=== PATIENT | male | born 1965 | race Caucasian/White ===

== ENCOUNTER 2019-07-02 05:45 | Inpatient (IN) ==
[2019-06-19 10:17] LABS: Basophils % 0.7 % (0.0-0.8); Eosinophils # 0.1 10*3/uL (0.0-0.87); Eosinophils % 2.5 % (0.00-10.9); Hematocrit 45.8 VOL% (42.0-52.0); Hemoglobin 15.9 GM/DL (14.0-18.0); Immature Granulocytes % 0.2 %; Immature Granulocytes Absolute 0.01 #; Lymphocytes # 2.2 10*3/uL (1.4-4.0); Mean Corpuscular HGB Conc 34.7 GM/DL (32-36); Mean Corpuscular Volume 89.1 FL (87-102); Mean Platelet Volume 10.5 FL (9.6-12.0); Monocytes % 7.1 % (1.7-12.7); Neutrophils % 51.5 % (38.7-73.9); Platelet Count 220 T/CUMM (130-400); Red Blood Count 5.14 MC/CUMM (3.8-5.5); Red Cell Distribution Width 12.9 % (9.3-17.3); White Blood Count 5.7 T/CUMM (4-12)
[2019-06-19 10:19] LABS: Apearance,Urine CLEAR (Clear); Bacteria,Urine Occasional /HPF (Few); Bilirubin,Urine Negative (Negative); Blood, Urine Negative (Negative); Glucose,Urine (UA) Negative (Negative); Ketones,Urine Negative (Negative); Mucus,Urine Occasional /LPF (Occasional); Nitrite,Urine Positive (Negative); Protein,Urine Negative; RBC,Urine <1 /HPF (0-4); Urine Color Yellow (Yellow); Urine Specific Gravity 1.008 (1.001-1.035); Urine Urobilinogen < 2.0 EU/DL (0.2-1.0); WBC,Urine 5 /HPF (0-6)
[2019-06-19 10:35] LABS: Calcium 9.3 MG/DL (8.5-10.1); Osmolality,Calculated 278.4 MOS/KG (273-304)
[2019-07-02] MEDS ORDERED: GABAPENTIN 400 MG CAPSULE PO ONE (06:00)
[2019-07-02] MEDS ORDERED: DIAZEPAM 5 MG TABLET PO ONE (06:00)
[2019-07-02] MEDS ORDERED: FAMOTIDINE 20 MG TABLET PO ONE (06:00)
[2019-07-02] MEDS ORDERED: GABAPENTIN 400 MG CAPSULE ONE (06:23)
[2019-07-02] MEDS ORDERED: DIAZEPAM 5 MG TABLET ONE (06:23)
[2019-07-02] MEDS ORDERED: ALVIMOPAN 12 MG CAPSULE ONE (06:24)
[2019-07-02] MEDS ORDERED: cefTRIAXone 1,000 MG VIAL ONE (06:24)
[2019-07-02] MEDS ORDERED: FAMOTIDINE 20 MG TABLET ONE (06:24)
[2019-07-02] MEDS ORDERED: cefTRIAXone 1,000 MG in SYRINGE 1 EACH IV ONE (06:30)
[2019-07-02] MEDS ORDERED: ALVIMOPAN 12 MG CAPSULE PO ONE (06:30)
[2019-07-02] MEDS ORDERED: LACTATED RINGERS 1,000 ML IV SCH (07:00)
[2019-07-02] MEDS ORDERED: SUGAMMADEX 200 MG/2 ML VIAL IV ONE (09:01)
[2019-07-02] MEDS ORDERED: diphenhydrAMINE 50 MG/1 ML VIAL IV PRN (09:24)
[2019-07-02] MEDS ORDERED: ONDANSETRON 4 MG/2 ML VIAL IV PRN ×2 (09:24→10:16)
[2019-07-02] MEDS ORDERED: HYDROmorphone PCA 30 MG/30 ML SYRINGE IV SCH (09:30)
[2019-07-02 09:47] LABS: Apearance,Urine CLEAR (Clear); Bilirubin,Urine Negative (Negative); Blood, Urine Negative (Negative); Glucose,Urine (UA) Negative (Negative); Ketones,Urine Negative (Negative); Nitrite,Urine Negative (Negative); Protein,Urine Negative; Urine Color Yellow (Yellow); Urine Specific Gravity 1.018 (1.001-1.035); Urine Urobilinogen < 2.0 EU/DL (0.2-1.0)
[2019-07-02] MEDS ORDERED: PROPOFOL 200 MG/20 ML VIAL IV ONE (09:48)
[2019-07-02] MEDS ORDERED: SEVOFLURANE 1 UNIT/15 MINUTE INH ONE (09:48)
[2019-07-02] MEDS ORDERED: LIDOCAINE 2% 5 ML VIAL ONE (09:48)
[2019-07-02] MEDS ORDERED: fentaNYL 100 MCG/2 ML VIAL ONE ×2 (09:49)
[2019-07-02] MEDS ORDERED: HYDROmorphone 2 MG/1 ML VIAL ONE ×2 (09:49→10:14)
[2019-07-02] MEDS ORDERED: KETAMINE 500 MG/10 ML VIAL ONE (09:49)
[2019-07-02] MEDS ORDERED: PHENYLEPHRINE 1 MG/10 ML SYRINGE IV ONE (09:50)
[2019-07-02] MEDS ORDERED: DEXAMETHASONE 4 MG/1 ML VIAL ONE (09:50)
[2019-07-02] MEDS ORDERED: ROCURONIUM 100 MG/10 ML VIAL IV ONE (09:50)
[2019-07-02] MEDS ORDERED: METOPROLOL TARTRATE 5 MG/5 ML VIAL IV ONE (09:50)
[2019-07-02] MEDS ORDERED: LACTATED RINGERS 1,000 ML IV ONE (09:50)
[2019-07-02] MEDS ORDERED: HYDROmorphone PCA 30 MG/30 ML SYRINGE IV ONE ×2 (09:51→10:14)
[2019-07-02] MEDS ORDERED: MIDAZOLAM 2 MG/2 ML VIAL ONE (09:53)
[2019-07-02] MEDS ORDERED: ONDANSETRON 4 MG/2 ML VIAL ONE (10:14)
[2019-07-02] MEDS: HYDROmorphone 2 MG/1 ML VIAL IV PRN ×4 (10:17→10:37)
[2019-07-02] MEDS ORDERED: ALBUTEROL 2.5 MG/3 ML NEB RESP TX PRN (11:00)
[2019-07-02] MEDS ORDERED: NALOXONE 0.4 MG/ML VIAL ONE ×2 (11:19→11:21)
[2019-07-02 11:50] LABS: Basophils # 0.1 10*3/uL (0.0-0.2); Basophils % 0.3 % (0.0-0.8); Eosinophils % 0.2 % (0.00-10.9); Hematocrit 43.2 VOL% (42.0-52.0); Hemoglobin 15.1 GM/DL (14.0-18.0); Immature Granulocytes % 0.5 %; Immature Granulocytes Absolute 0.08 #; Lymphocytes # 2.3 10*3/uL (1.4-4.0); Lymphocytes % 13.2 % (21.2-54.2); Mean Corpuscular Volume 90.8 FL (87-102); Mean Platelet Volume 10.2 FL (9.6-12.0); Monocytes % 2.3 % (1.7-12.7); Neutrophils % 83.5 % (38.7-73.9); Platelet Count 199 T/CUMM (130-400); Red Blood Count 4.76 MC/CUMM (3.8-5.5); Red Cell Distribution Width 13.1 % (9.3-17.3); White Blood Count 17.2 T/CUMM (4-12)
[2019-07-02 11:57] LABS: INR 0.9; PT Patient Result 10.2 SECS (9.6-12.2); Partial Thromboplastin Time 22.3 SECS (20.8-36.0)
[2019-07-02 12:00] LABS: ABG Base Excess -3.9 MMOL/L (-2.5-2.5); ABG HCO3 22.6 MMOL/L (20-26); ABG Oxygen Saturation 99.2 % (95-100); ABG PCO2 46.6 MM HG (35-48); ABG PH 7.304 (7.35-7.45); ABG PO2 221.7 MM HG (80-95); ABG TCO2 24.1 MMOL/L (23-27)
[2019-07-02 12:07] LABS: Blood Urea Nitrogen 17 MG/DL (7-18); Estimated Glom Filtration Rate 63 ML/MIN; Glucose 216 MG/DL (74-106); Osmolality,Calculated 289.3 MOS/KG (273-304)
[2019-07-02] MEDS ORDERED: methylPREDNISolone SOD SUC 125 MG/2 ML VIAL IV ONE (13:57)
[2019-07-02] MEDS: ACETAMINOPHEN 500 MG TABLET PO PRN ×2 (14:22→18:06)
[2019-07-02] MEDS: MORPHINE 4 MG/1 ML VIAL IV PRN ×3 (14:23→20:12)
[2019-07-02] MEDS: SODIUM CHLORIDE 0.9% 1,000 ML IV SCH ×2 (14:30→19:30)
[2019-07-02 14:34] LABS: Troponin I 0.017 NG/ML (0.00-0.045)
[2019-07-02 14:53] LABS: Bilirubin,Direct 0.11 MG/DL (0.0-0.20); Bilirubin,Indirect 0.3 MG/DL (0.0-1.0); Bilirubin,Total 0.4 MG/DL (0.2-1.0); Total Protein 6.8 G/DL (6.4-8.3)
[2019-07-02] MEDS: ALBUTEROL/IPRATROPIUM 3 ML NEB RESP TX SCH (19:23)
[2019-07-02] MEDS: ALVIMOPAN 12 MG CAPSULE PO SCH (20:11)
[2019-07-02 20:30] LABS: Troponin I 0.029 NG/ML (0.00-0.045)
[2019-07-03] MEDS: SODIUM CHLORIDE 0.9% 1,000 ML IV SCH ×3 (00:30→10:08)
[2019-07-03] MEDS: ALBUTEROL/IPRATROPIUM 3 ML NEB RESP TX SCH ×5 (00:33→19:28)
[2019-07-03] MEDS: MORPHINE 4 MG/1 ML VIAL IV PRN ×5 (01:44→19:02)
[2019-07-03 03:01] LABS: Basophils % 0.2 % (0.0-0.8); Hematocrit 40.8 VOL% (42.0-52.0); Hemoglobin 14.2 GM/DL (14.0-18.0); Immature Granulocytes % 0.3 %; Immature Granulocytes Absolute 0.04 #; Lymphocytes # 1.2 10*3/uL (1.4-4.0); Lymphocytes % 9.8 % (21.2-54.2); Mean Corpuscular HGB Conc 34.8 GM/DL (32-36); Mean Corpuscular Volume 90.3 FL (87-102); Mean Platelet Volume 10.5 FL (9.6-12.0); Monocytes % 9.6 % (1.7-12.7); Neutrophils % 80.1 % (38.7-73.9); Platelet Count 173 T/CUMM (130-400); Red Blood Count 4.52 MC/CUMM (3.8-5.5); White Blood Count 11.9 T/CUMM (4-12)
[2019-07-03 03:26] LABS: Calcium 8.3 MG/DL (8.5-10.1); Osmolality,Calculated 284.3 MOS/KG (273-304)
[2019-07-03 03:30] LABS: Troponin I 0.026 NG/ML (0.00-0.045)
[2019-07-03 08:27] LABS: Troponin I 0.026 NG/ML (0.00-0.045)
[2019-07-03] MEDS: ALVIMOPAN 12 MG CAPSULE PO SCH ×2 (10:08→22:31)
[2019-07-03] MEDS: POLYETHYLENE GLYCOL POWDER 17 GM PACK PO SCH (10:08)
[2019-07-03 15:53] LABS: Troponin I 0.028 NG/ML (0.00-0.045)
[2019-07-03] MEDS ORDERED: BISACODYL 10 MG SUPP RECTAL PRN (21:19)
[2019-07-03] MEDS: SIMETHICONE CHEW 125 MG TABLET PO SCH (22:31)
[2019-07-03] MEDS: oxyCODONE/ACETAMINOPHEN 5-325 MG TABLET PO PRN (22:32)
[2019-07-03] MEDS: NICOTINE 21 MG/24 HR PATCH TRANSDERM SCH (22:33)
[2019-07-04] MEDS: ALBUTEROL/IPRATROPIUM 3 ML NEB RESP TX SCH ×2 (00:10→07:51)
[2019-07-04] MEDS: oxyCODONE/ACETAMINOPHEN 5-325 MG TABLET PO PRN ×2 (04:43→09:56)
[2019-07-04] MEDS: ALVIMOPAN 12 MG CAPSULE PO SCH (08:27)
[2019-07-04] MEDS: SIMETHICONE CHEW 125 MG TABLET PO SCH (08:27)
[2019-07-04] MEDS: NICOTINE 21 MG/24 HR PATCH TRANSDERM SCH (08:27)
[2019-07-04] MEDS: POLYETHYLENE GLYCOL POWDER 17 GM PACK PO SCH (08:27)
[2019-07-04] MEDS ORDERED: SIMETHICONE CHEW 125 MG TABLET PO SCH (09:00)
[2019-07-04 11:29] VITALS: BP 126/83
== END 2019-07-04 13:11 | disposition home or self-care (01) | DRG 656 ==
LOC: N.OR 05:45 → N.SDSINP 05:45 → N.5E 10:43 → N.ICU 11:33 → N.5E 07-03 14:21
PROVIDERS: ADMIT Urology; ATTEND Urology

== ENCOUNTER 2020-05-12 09:38 | Inpatient (IN) ==
[2020-05-12 10:17] LABS: Basophils % 0.7 % (0.0-0.8); Eosinophils # 0.1 10*3/uL (0.0-0.87); Eosinophils % 2.6 % (0.00-10.9); Hematocrit 45.2 VOL% (42.0-52.0); Hemoglobin 15.8 GM/DL (14.0-18.0); Immature Granulocytes % 0.2 %; Immature Granulocytes Absolute 0.01 #; Lymphocytes # 1.8 10*3/uL (1.4-4.0); Lymphocytes % 38.5 % (21.2-54.2); Mean Corpuscular Volume 88.3 FL (87-102); Mean Platelet Volume 10.3 FL (9.6-12.0); Monocytes % 8.6 % (1.7-12.7); Neutrophils % 49.4 % (38.7-73.9); Platelet Count 238 T/CUMM (130-400); Red Blood Count 5.12 MC/CUMM (3.8-5.5); Red Cell Distribution Width 13.7 % (9.3-17.3); White Blood Count 4.6 T/CUMM (4-12)
[2020-05-12 10:36] LABS: Albumin 4.3 G/DL (3.4-5.0); Bilirubin,Total 0.7 MG/DL (0.2-1.0); Calcium 9.5 MG/DL (8.5-10.1); Osmolality,Calculated 273.8 MOS/KG (273-304); Total Protein 8.3 G/DL (6.4-8.3)
[2020-05-12] MEDS ORDERED: cefTRIAXone 1,000 MG in SODIUM CHLORIDE 0.9% 100 ML IV STA (11:44)
[2020-05-12] MEDS ORDERED: AZITHROMYCIN INJ 500 MG in SODIUM CHLORIDE 0.9% 250 ML IV STA (11:44)
[2020-05-12] MEDS ORDERED: traZODone 50 MG TABLET PO PRN (12:13)
[2020-05-12] MEDS ORDERED: ZALEPLON 5 MG CAPSULE PO PRN (12:13)
[2020-05-12] MEDS ORDERED: guaiFENesin/DM ER 600-30 MG TABLET PO PRN (12:13)
[2020-05-12] MEDS ORDERED: hydrALAZINE 20 MG/1 ML VIAL IV PRN (12:13)
[2020-05-12] MEDS ORDERED: diphenhydrAMINE CAP 25 MG CAPSULE PO PRN (12:13)
[2020-05-12] MEDS ORDERED: ONDANSETRON 4 MG/2 ML VIAL IV PRN (12:13)
[2020-05-12] MEDS ORDERED: DEXTROSE 50% 25 GM/50 ML VIAL IV PRN (12:13)
[2020-05-12] MEDS ORDERED: POTASSIUM CHLORIDE RIDER 10 MEQ in PREMIX 1 EACH IV PRN (12:13)
[2020-05-12] MEDS ORDERED: MORPHINE 4 MG/1 ML VIAL IV PRN (12:13)
[2020-05-12] MEDS ORDERED: GLUCAGON 1 MG VIAL IM PRN (12:13)
[2020-05-12] MEDS ORDERED: ALBUTEROL/IPRATROPIUM 3 ML NEB RESP TX PRN (13:00)
[2020-05-12] MEDS ORDERED: TUBERCULIN SKIN TEST 0.1 ML SYRINGE INTRADERM ONE (16:00)
[2020-05-12 20:07] LABS: Apearance,Urine CLEAR (Clear); Bilirubin,Urine Negative (Negative); Blood, Urine Negative (Negative); Glucose,Urine (UA) Negative (Negative); Ketones,Urine 5 mg/dL (Negative); Nitrite,Urine Negative (Negative); Protein,Urine Negative; RBC,Urine 1 /HPF (0-4); Urine Color Yellow (Yellow); Urine Specific Gravity 1.033 (1.001-1.035); Urine Urobilinogen < 2.0 EU/DL (0.2-1.0); WBC,Urine <1 /HPF (0-6)
[2020-05-12] MEDS: busPIRone 5 MG TABLET PO SCH (20:15)
[2020-05-12] MEDS: NICOTINE 21 MG/24 HR PATCH TRANSDERM PRN (20:18)
[2020-05-12 21:17] LABS: Barbiturates Screen,Urine Negative (Negative); Benzodiazepines Screen,Urine Negative (Negative); Cannabinoid Screen,Urine Positive (Negative); Opiate Screen,Urine Positive (Negative); Phencyclidine Screen,Urine Negative (Negative)
[2020-05-13 06:19] LABS: Basophils % 0.8 % (0.0-0.8); Eosinophils # 0.2 10*3/uL (0.0-0.87); Eosinophils % 3.3 % (0.00-10.9); Hematocrit 41.6 VOL% (42.0-52.0); Hemoglobin 14.2 GM/DL (14.0-18.0); Immature Granulocytes % 0.6 %; Immature Granulocytes Absolute 0.03 #; Lymphocytes # 2.4 10*3/uL (1.4-4.0); Lymphocytes % 45.9 % (21.2-54.2); Mean Corpuscular HGB Conc 34.1 GM/DL (32-36); Mean Corpuscular Volume 90.2 FL (87-102); Mean Platelet Volume 10.4 FL (9.6-12.0); Monocytes % 8.9 % (1.7-12.7); Neutrophils % 40.5 % (38.7-73.9); Platelet Count 212 T/CUMM (130-400); Red Blood Count 4.61 MC/CUMM (3.8-5.5); Red Cell Distribution Width 13.7 % (9.3-17.3); White Blood Count 5.2 T/CUMM (4-12)
[2020-05-13 06:40] LABS: Albumin 3.6 G/DL (3.4-5.0); Bilirubin,Total 0.6 MG/DL (0.2-1.0); Calcium 9.1 MG/DL (8.5-10.1); Osmolality,Calculated 281.3 MOS/KG (273-304); Risk Ratio 5.66; Thyroid Stimulating Hormone 1.96 uIU/ml (0.358-3.74); Total Protein 7.2 G/DL (6.4-8.3); VLDL CHOLESTEROL 25.4 MG/DL
[2020-05-13] MEDS ORDERED: MEPERIDINE 50 MG/1 ML VIAL IM ONE (08:06)
[2020-05-13] MEDS ORDERED: PROMETHAZINE 25 MG/1 ML VIAL IM ONE (08:08)
[2020-05-13] MEDS: PANTOPRAZOLE 40 MG TABLET PO SCH (08:15)
[2020-05-13] MEDS: busPIRone 5 MG TABLET PO SCH ×2 (08:15→20:59)
[2020-05-13] MEDS ORDERED: MIDAZOLAM 2 MG/2 ML VIAL ONE (08:34)
[2020-05-13] MEDS: cefTRIAXone 1,000 MG in SYRINGE 1 EACH IV SCH (08:42)
[2020-05-13] MEDS ORDERED: MIDAZOLAM 2 MG/2 ML VIAL IV ONE (08:47)
[2020-05-13] MEDS ORDERED: LIDOCAINE 2% 20 ML VIAL RESP TX ONE (08:47)
[2020-05-13] MEDS ORDERED: LIDOCAINE 1% 20 ML VIAL MISC INJ ONE (08:47)
[2020-05-13] MEDS ORDERED: LIDOCAINE 2% VISCOUS 100 ML BOTTLE SWISH/SPIT ONE (08:47)
[2020-05-13] MEDS ORDERED: EPINEPHrine 1 MG/ML VIAL ET ONE (09:15)
[2020-05-13] MEDS ORDERED: EPINEPHrine 1 MG/ML VIAL ONE (09:53)
[2020-05-13] MEDS: methylPREDNISolone SOD SUC 40 MG/1 ML VIAL IV SCH ×2 (11:45→16:47)
[2020-05-13] MEDS: AZITHROMYCIN INJ 500 MG in SODIUM CHLORIDE 0.9% 250 ML IV SCH (11:45)
[2020-05-13] MEDS: NICOTINE 21 MG/24 HR PATCH TRANSDERM PRN (16:46)
[2020-05-14] MEDS: methylPREDNISolone SOD SUC 40 MG/1 ML VIAL IV SCH ×2 (02:10→08:34)
[2020-05-14 05:10] LABS: Basophils % 0.1 % (0.0-0.8); Hematocrit 39.5 VOL% (42.0-52.0); Immature Granulocytes % 0.3 %; Immature Granulocytes Absolute 0.02 #; Lymphocytes % 13.8 % (21.2-54.2); Mean Corpuscular HGB Conc 35.4 GM/DL (32-36); Monocytes % 8.5 % (1.7-12.7); Neutrophils % 77.3 % (38.7-73.9); Platelet Count 209 T/CUMM (130-400); Red Blood Count 4.49 MC/CUMM (3.8-5.5); Red Cell Distribution Width 13.5 % (9.3-17.3); White Blood Count 7.2 T/CUMM (4-12)
[2020-05-14 05:50] LABS: Albumin 3.8 G/DL (3.4-5.0); Bilirubin,Total 0.7 MG/DL (0.2-1.0); Calcium 9.3 MG/DL (8.5-10.1); Osmolality,Calculated 275.8 MOS/KG (273-304); Total Protein 7.4 G/DL (6.4-8.3)
[2020-05-14] MEDS: cefTRIAXone 1,000 MG in SYRINGE 1 EACH IV SCH (08:33)
[2020-05-14] MEDS: busPIRone 5 MG TABLET PO SCH (08:35)
[2020-05-14] MEDS: PANTOPRAZOLE 40 MG TABLET PO SCH (08:35)
[2020-05-14] MEDS: AZITHROMYCIN INJ 500 MG in SODIUM CHLORIDE 0.9% 250 ML IV SCH (08:35)
[2020-05-14 11:32] VITALS: BP 134/74
== END 2020-05-14 14:20 | disposition home or self-care (01) | DRG 164 ==
LOC: N.ED 09:38 → SUATTDRO 12:13 → N.EDINP 12:13 → N.4E 15:36
PROVIDERS: ADMIT Internal Medicine; ATTEND Internal Medicine